=== PATIENT | male | born 1975 | race Caucasian/White ===

== ENCOUNTER 2018-02-03 19:08 | Emergency (ER) | payer OTHER ==
[2018-02-03 19:17] VITALS: BP 169/100; PULSE 82; TEMP 98; BMI 34.4
--- NOTE | 2018-02-03 19:50 | PDOC ---
History of Present Illness - General Chief Complaint: Back Pain Stated Complaint: PAIN Time Seen by Provider: 02/03/18 19:20 - History of Present Illness Initial Comments: 6-year-old male presents for evaluation of atraumatic lower back pain with right -sided radiculopathy. He describes his pain as achy exacerbated with activity relieved with rest. The pain radiates from his lower back to the posterior lateral aspect of the right thigh. No loss of urinary function no loss of blood bowel function. He's had back pain like this in the past which was untreated. The pain started after he went to go bulk picker a heavy log earlier today. 02/03/18 19:45 Past History - Past Medical History Allergies/Adverse Reactions: Allergies Allergy/AdvReac Type Severity Reaction Status Date / Time No Known Allergies Allergy Verified 02/03/18 19:13 Home Medications: Ambulatory Orders Cyclobenzaprine HCl [Flexeril 10 mg] 10 mg PO HS PRN #10 tablet 02/03/18 Methylprednisolone [Medrol Dose Petey] 4 mg PO ASDIR #21 tablet 02/03/18 COPD: No HTN: Yes - Immunization History Td Vaccination: No Immunization Up to Date: Yes - Suicide/Smoking/Psychosocial Hx Smoking History: Never smoked Have you smoked in the past 12 months: No Information on smoking cessation initiated: No Hx Alcohol Use: No Drug/Substance Use Hx: No Substance Use Type: None Review of Systems - Review of Systems Musculoskeletal: Yes: Back Pain All Other Systems: Reviewed and Negative *Physical Exam - Vital Signs Last Vital Signs Temp Pulse Resp BP Pulse Ox 98.0 F 82 16 169/100 100 02/03/18 19:13 02/03/18 19:13 02/03/18 19:13 02/03/18 19:13 02/03/18 19:13 - Physical Exam Comments: Lumbar spine skin color and temperature are normal. There is decreased painful range of motion. 5 out of 5 strength in bilateral lower extremities. Patella and Achilles reflexes are 2+ and symmetric bilaterally. There is no clonus. Straight leg raise test is positive on the right negative on the left. Thighs and calves are soft and nontender. There are no gross sensory motor deficits. Neurovascularly intact. 02/03/18 19:46 *DC/Admit/Observation/Transfer Diagnosis at time of Disposition: Lumbar radicular pain, Lower back pain - Discharge Dispostion Disposition: HOME Condition at time of disposition: Stable Decision to Admit order: No - Referrals Referrals: Josue Sneed MD [Staff Physician] - - Patient Instructions Printed Discharge Instructions: Lumbar Radiculopathy, DI for Lumbar Radiculopathy Additional Instructions: Follow-up with orthopedics as discussed. Take the Medrol Dosepak as directed. Take the muscle relaxer one tablet before bedtime. Return to the emergency room if symptoms worsen or go unresolved prior to follow up with orthopedic surgery. - Post Discharge Activity
== END 2018-02-03 19:53 | disposition home or self-care (01) ==
LOC: JERFT 19:08
DX: M54.16 Radiculopathy, lumbar region (principal); I10 Essential (primary) hypertension
CPT/HCPCS: 99281-25

== ENCOUNTER 2018-06-21 03:24 | Emergency (ER) | payer OTHER ==
[2018-06-21 04:00] VITALS: TEMP 98.5; BMI 36.4
[2018-06-21] MEDS ORDERED: KETOROLAC TROMETHAMINE 30 MG/1 ML VIAL IM ONE (04:01)
[2018-06-21] MEDS ORDERED: DEXAMETHASONE SOD PHOSPHATE 10 MG/1 ML VIAL IM ONE (04:02)
[2018-06-21] MEDS ORDERED: ACETAMINOPHEN 500 MG TABLET (FP) PO ONE (04:04)
[2018-06-21] MEDS ORDERED: KETOROLAC TROMETHAMINE 30 MG/1 ML VIAL ONE (04:16)
[2018-06-21] MEDS ORDERED: DEXAMETHASONE SOD PHOSPHATE 10 MG/1 ML VIAL ONE (04:16)
[2018-06-21] MEDS ORDERED: ACETAMINOPHEN 325 MG TABLET (FP) ONE (04:16)
--- NOTE | 2018-06-21 04:17 | PDOC ---
History of Present Illness - General Chief Complaint: Sore Throat Stated Complaint: THROAT SWELLING Time Seen by Provider: 06/21/18 03:46 - History of Present Illness Initial Comments: 06/21/18 04:12 The patient is a 42 year old male with no past medical history who presents to the emergency department with 2 days of sore throat. Pt states that he has pain with swallowing but denies difficulty swallowing or breathing. No voice change. The patient has positive sick contacts of his , recently diagnosed with bronchitis. He has not seen a primary care provider in multiple years and notes his blood pressure is usually elevated. He denies any recent fevers, chills, headache or dizziness. He denies any recent nausea, vomit, diarrhea or constipation. He denies any recent chest pain or shortness of breath. He denies any recent dysuria, frequency, urgency or hematuria. Allergies: NKA Past surgical history: None reported. Social History: Smoker (20 cigarettes per day). Denies EtOH use and recreational drug use. Past History - Past Medical History Allergies/Adverse Reactions: Allergies Allergy/AdvReac Type Severity Reaction Status Date / Time No Known Allergies Allergy Verified 06/21/18 03:40 Home Medications: Ambulatory Orders Cyclobenzaprine HCl [Flexeril 10 mg] 10 mg PO HS PRN #10 tablet 02/03/18 Methylprednisolone [Medrol Dose Petey] 4 mg PO ASDIR #21 tablet 02/03/18 Penicillin V Potassium [Pen Vee K -] 500 mg PO TID #30 tablet 06/21/18 COPD: No HTN: Yes - Immunization History Td Vaccination: No Immunization Up to Date: Yes - Suicide/Smoking/Psychosocial Hx Smoking History: Current every day smoker Have you smoked in the past 12 months: No Number of Cigarettes Smoked Daily: 20 Information on smoking cessation initiated: No Hx Alcohol Use: No Drug/Substance Use Hx: No Substance Use Type: None Review of Systems - Review of Systems Comments:: 06/21/18 04:16 GENERAL/CONSTITUTIONAL: No fever or chills. No weakness. HEAD, EYES, EARS, NOSE AND THROAT: + sore throat, No change in vision. No ear pain or discharge. CARDIOVASCULAR: No chest pain or shortness of breath. RESPIRATORY: No cough, wheezing, or hemoptysis. GASTROINTESTINAL: No nausea, vomiting, diarrhea or constipation. GENITOURINARY: No dysuria, frequency, or change in urination. MUSCULOSKELETAL: No joint or muscle swelling or pain. No neck or back pain. SKIN: No rash NEUROLOGIC: No headache, vertigo, loss of consciousness, or change in strength/ sensation. ENDOCRINE: No increased thirst. No abnormal weight change. HEMATOLOGIC/LYMPHATIC: No anemia, easy bleeding, or history of blood clots. ALLERGIC/IMMUNOLOGIC: No hives or skin allergy. *Physical Exam - Vital Signs Last Vital Signs Temp Pulse Resp BP Pulse Ox 98.5 F 106 H 18 184/113 H 98 06/21/18 03:40 06/21/18 03:40 06/21/18 03:40 06/21/18 03:40 06/21/18 03:40 - Physical Exam Comments: 06/21/18 04:16 GENERAL: Awake, alert, and fully oriented, in no acute distress. HEAD: No signs of trauma EYES: PERRLA, EOMI, sclera anicteric, conjunctiva clear ENT: + bilateral erythematous and swollen tonsils, no exudates, no peritonsillar abscess, normal uvula, no tongue swelling, auricles normal inspection, hearing grossly normal, nares patent, Moist mucosa NECK: Nontender, no stepoffs, Normal ROM, supple, no lymphadenopathy, JVD, or masses LUNGS: Breath sounds equal, clear to auscultation bilaterally. No wheezes, and no crackles HEART: Regular rate and rhythm, normal S1 and S2, no murmurs, rubs or gallops ABDOMEN: Soft, nontender, normoactive bowel sounds. No guarding, no rebound. No masses EXTREMITIES: Normal range of motion, no edema. No clubbing or cyanosis. No cords, erythema, or tenderness NEUROLOGICAL: Cranial nerves II through XII intact. 5/5 strength and sensation in all extremities, Normal speech, normal gait, normal cerebellar function SKIN: Warm, Dry, normal turgor, no rashes or lesions noted. Medical Decision Making - Medical Decision Making 06/21/18 04:17 42 M with sore throat, found to have bilaterally swollen and erythematous tonsils. Will r/o strep. No evidence of abscess. No stridor on exam or other evidence of airway obstruction. Pt found to be hypertensive in ED. Denies any CP /SOB/headache. No evidence of end organ damage. - Rapid strep - IM toradol, decadron - PO tylenol - Reassess 06/21/18 04:58 Rapid strep + Will tx with Pen VK Pt reassessed - vitals improving without intervention. Pt to f/u with PMD regarding BP and ENT for management of tonsillitis. Pt is well appearing, with normal vitals. Clinically stable for DC at this time. I discussed the physical exam findings, ancillary test results and final diagnoses with the patient. I answered all of the patient's questions. The patient was satisfied with the care received and felt comfortable with the discharge plan and treatment plan. The patient agrees to follow up with the primary care physician within 24-72 hours. *DC/Admit/Observation/Transfer Diagnosis at time of Disposition: Strep pharyngitis - Discharge Dispostion Disposition: HOME - Prescriptions Prescriptions: Penicillin V Potassium [Pen Vee K -] 500 mg PO TID #30 tablet - Referrals Referrals: Carolina Mansfield MD [Primary Care Provider] - Zeyad Duong MD [Staff Physician] - - Patient Instructions Printed Discharge Instructions: DI for Strep Throat Additional Instructions: Take the penicillin VK three times a day for 10 days to treat your strep throat. If you experience worsening throat pain, swelling, high fevers, or any other concerning symptoms, return to the ER immediately. Otherwise, follow up with an ENT for further management of your tonsillitis. Call the number provided to make an appointment. You also need to have your blood pressure re-checked by your primary doctor, as it was slightly elevated today. Uncontrolled blood pressure can eventually lead to kidney disease, heart disease, other serious illness, disability, or even . - Post Discharge Activity - Attestations Physician Attestion: 06/21/18 05:00 I, Dr. Mukesh Brambila MD, attest that this document has been prepared under my direction and personally reviewed by me in its entirety. I further attest, that it accurately reflects all work, treatment, procedures and medical decision -making performed by me.
[2018-06-21] MEDS ORDERED: PENICILLIN V POTASSIUM 500 MG TABLET PO ONE (04:56)
[2018-06-21 05:01] VITALS: BP 164/98; PULSE 86
== END 2018-06-21 05:11 | disposition home or self-care (01) ==
LOC: JER 03:24
PROC: 3E023GC Introduction of Other Therapeutic Substance into Muscle, Percutaneous Approach (ICD-10-PCS; principal; 2018-06-21)
PROC: 3E0233Z Introduction of Anti-inflammatory into Muscle, Percutaneous Approach (ICD-10-PCS; 2018-06-21)
DX: J02.0 Streptococcal pharyngitis (principal)
CPT/HCPCS: 87070; 87077; 87430; 99282-25; J1100